=== PATIENT | female | born 1950 | race Caucasian/White ===

== ENCOUNTER 2017-07-22 09:32 | Outpatient (CLI) | payer MEDICARE ==
--- NOTE | 2017-07-22 12:39 | ULT ---
CAROTID DUPLEX SONOGRAM: History: Vascular disease. Syncope. FINDINGS: Right: Prominent plaque is present throughout the right carotid system. Color and spectral doppler e valuation, peak systolic velocity lf 159 cm/sec and IC to CC ratio is 1.8 suggest stenosis within th e right cervical ICA to be in the range of 50-69%. Antegrade flow is present within the vertebral ar swati. Left: Mild plaque is present. Color and spectral doppler evaluation, peak systolic velocity of 142 c m/sec and IC to CC ratio of 1.3 suggests no hemodynamically significant stenosis within the extracra nial right ICA. Antegrade flow is present within the vertebral artery. IMPRESSION: Prominent plaque. Elevated velocity within the right cervical ICA suggestive of stenosis in the rang e of 50-69%. Please consider further evaluation with virtual or CT arteriography. POS: [facility]
--- NOTE | 2017-07-24 15:58 | EKG ---
Test Reason : Blood Pressure : / mmHG Vent. Rate : 095 BPM Atrial Rate : 095 BPM P-R Int : 166 ms QRS Dur : 122 ms QT Int : 384 ms P-R-T Axes : 068 -65 063 degrees QTc Int : 482 ms Normal sinus rhythm Left anterior fascicular block Abnormal ECG When compared with ECG of 29-MAR-2017 17:01, (Unconfirmed) No significant change was found Confirmed by DR. Nathan SANABRIA ([id number]) on 07/24/2017 3:58:27 PM Referred By: FOREIGN Confirmed By:DR. Nathan SANABRIA
== END 2017-07-22 09:33 | disposition home or self-care (01) ==
LOC: ULT 09:32
PROVIDERS: ATTEND Surgery
DX: R55 Syncope and collapse (principal)
CPT/HCPCS: 93005; 93010; 93880

== ENCOUNTER 2017-09-16 06:09 | Inpatient (IN) | payer MEDICARE ==
[2017-09-15 12:08] VITALS: BMI 20.3
[2017-09-16] MEDS ORDERED: Midazolam HCl 2 mg/2 ml Vial ONE ×2 (06:30→07:01)
[2017-09-16] MEDS ORDERED: Fentanyl 100 MCG/2 ML VIAL ONE ×5 (06:30→14:41)
[2017-09-16] MEDS ORDERED: CEFAZOLIN/Water 2 GM/20 ML SYRINGE ONE (07:01)
[2017-09-16 07:06] LABS: #Eosinphils 0.3 thou/uL (0.0-0.7); #Lymphocytes 2.7 thou/uL (1.20-3.40); #Monocytes 0.7 thou/uL (0.11-0.59); #Neutrophils 6.1 thou/uL (1.40-6.50); %Eosinophils 3.1 % (0.0-10.0); %Lymphocytes 27.5 % (21.0-51.0); %Monocytes 7.2 % (0.0-10.0); %Neutrophils 62.2 % (42.0-75.0); Hemoglobin 14.9 g/dL (12.0-16.0); Mean Corpuscular HGB CONC 34.1 g/dL (32.0-36.0); Mean Corpuscular Hemoglobin 33.2 pg (27.0-31.0); Mean Corpuscular Volume 97.4 fl (81.0-99.0); Mean Platelet Volume 5.8 fL (7.4-10.4); Platelet Count 372 thou/uL (130-400); RBC Distribution Width 11.5 % (11.5-14.5); Red Blood Cell (RBC) Count 4.48 mill/uL (4.20-5.40); White Blood Cell (WBC) Count 9.9 thou/uL (4.8-10.8)
[2017-09-16 07:18] LABS: Anion Gap 14 mmol/L (10-20); BUN (Urea Nitrogen) 7 mg/dL (9.8-20.1); Calc. Creatinine Clearance 64 mL/min (70-130); Calcium 10.6 mg/dL (7.8-10.44); Carbon Dioxide 27 mmol/L (23-31); Chloride 97 mmol/L (98-107); Estimated GFR-MDRD 71; Glucose 112 mg/dL (80-115); Potassium 3.9 mmol/L (3.5-5.1); Sodium 134 mmol/L (136-145)
[2017-09-16] MEDS ORDERED: cefOXitin 2 GM VIAL ONE ×3 (07:42→12:06)
[2017-09-16] MEDS ORDERED: cefOXitin 2 GM, Syringe 1 ML in Sterile Water 10 ML SLOW IVP SCH (07:45)
[2017-09-16] MEDS ORDERED: Bupivacaine/Epinephrine 0.25% 30 ML VIAL ONE (08:34)
--- NOTE | 2017-09-16 11:04 | OP ---
DATE OF SERVICE: 09/16/2017 PREOPERATIVE DIAGNOSES: Diverticular disease with abscess, status post diversion. POSTOPERATIVE DIAGNOSES: Diverticular disease with abscess, status post diversion. PROCEDURE: Cystoscopy, placement of bilateral open-ended external ureteral stents. SURGEON: Mary Ellen Angeles M.D. ANESTHESIA: General with endotracheal tube. FINDINGS: Adequate placement of 2 open-ended 5-Gabonese ureteral catheters secured to Briceño catheter. COMPLICATIONS: No complications. DRAINS: Drain remaining was a bilateral ureteral indwelling attached to Briceño catheter. ESTIMATED BLOOD LOSS: No blood loss. INDICATIONS: The patient is a 67-year-old female who was seen in the office for concerns for fistula and ultimately been diverted already with a colostomy was planning on having her bowel resected and reattached and I was requested to place ureteral catheters. The patient was brought into the room by Anesthesia, was laid in the supine position. After obtainin g general anesthetic her legs placed in lithotomy position. Perineum was prepped and draped in steri le fashion. Using a 22-Gabonese cystoscope and 30 degree lens was traversed. The left ureteral orific e was intubated with a Pollack catheter and pushed until there was slight resistance. Then, the scop e was broken apart and removed, keeping the ureteral catheter in place and then the scope was put oralia k in because a right stent was requested as well so this was done in similar fashion. The scope brok en apart again. Both ureteral catheters were then exiting the urethral meatus and a Briceño catheter w as placed and secured. The ureteral catheters were placed into the drainage component of the Briceño c atheter and secured. The patient tolerated the procedure well and then remained asleep for the durat ion of her intended procedure.
[2017-09-16] MEDS ORDERED: Rocuronium Bromide 50 MG/5 ML VIAL ONE (12:06)
[2017-09-16] MEDS ORDERED: Ondansetron HCl/PF 4 MG/2 ML Vial IVP PRN ×3 (13:38→15:53)
[2017-09-16] MEDS ORDERED: Promethazine HCl 25 MG/ML VIAL SLOW IVP PRN (13:38)
[2017-09-16] MEDS ORDERED: Promethazine HCl 25 MG/ML VIAL IM PRN ×3 (13:38→15:53)
[2017-09-16] MEDS ORDERED: Promethazine HCl 25 MG/ML VIAL ONE (13:52)
[2017-09-16] MEDS ORDERED: Fentanyl 5000 MCG/250 ML CADD IVPB PRN ×2 (14:04→14:14)
[2017-09-16] MEDS ORDERED: diphenhydrAMINE 50 MG/ML VIAL IVP PRN (14:04)
[2017-09-16] MEDS ORDERED: diphenhydrAMINE 50 MG/ML VIAL IM PRN (14:04)
[2017-09-16] MEDS ORDERED: Naloxone HCl 0.4 mg/ml Vial IV PRN (14:04)
[2017-09-16] MEDS ORDERED: diphenhydrAMINE 25 MG CAP PO PRN (14:04)
[2017-09-16] MEDS ORDERED: Ketorolac Tromethamine 30 MG/ML VIAL IVP PRN (14:04)
[2017-09-16] MEDS ORDERED: Communication Order-Pharmacy FS SCH (14:15)
[2017-09-16] MEDS ORDERED: fentaNYL Citrate/PF 2,000 MCG in Sodium Chloride 0.9% 60 ML IV PRN (14:45)
--- NOTE | 2017-09-16 15:33 | PDOC.OP ---
Operative Note - Operative Note Operative Note: PROCEDURE: Sigmoid colectomy and colostomy reversal DATE OF PROCEDURE: 09/16/2017 SURGEON: Demond Vuong M.D. PREOPERATIVE DIAGNOSES: Colovaginal fistula with diverting colostomy POSTOPERATIVE DIAGNOSIS: Colovaginal fistula with diverting colostomy HISTORY: Ms. Calvo is a 67-year-old woman who presented to the hospital with a colovaginal fistula and a large pelvic abscess. She underwent a laparoscopic diverting colostomy and was treated with antibiotics as her abscess drained through the colovaginal fistula and her acute diverticulitis resolved. She now returns for sigmoid colectomy and reversal of her colostomy. PROCEDURE IN DETAIL: After informed consent was obtained and appropriate preoperative bowel prep and antibiotics administered, the patient was taken to the operating room where she was placed in the supine position and general anesthesia was administered. She was then placed in lithotomy position and prepped and draped in standard sterile fashion and cystoscopy and ureteral stent placement carried out by Dr. Angeles which is dictated under separate report. Her colostomy site was then sutured shut and she was prepped and draped again in lithotomy position including a rectal prep. A 6cm circa-umbilical incision was made and dissection carried down to the fascia which was incised in the midline. There were no significant adhesions to the anterior abdominal wall. A GelPort was placed and carbon dioxide gas insufflated through a port placed through the GelPort. Additional dissecting ports were placed in the upper midline and right lower quadrant under direct vision of the laparoscope. The abdominal cavity was then carefully examined. The sigmoid colon was densely adherent to the anterior abdominal wall at the remainder of the bowel was free of adhesions. The small intestine was easily moved out of the pelvis and the sigmoid colon carefully dissected free of the anterior abdominal wall through the avascular plane. Once the colon itself was mobilized off of the anterior abdominal wall tissues behind this were relatively soft and normal. The ureteral stents could easily be felt in the retroperitoneum well away from the area of dissection. As dissection was carried down toward the pelvis a dense area of fibrosis was encountered which was felt to likely represent the colovaginal fistula. This was carefully dissected free circumferentially and then transected with the LigaSure. There was no remaining patent lumen within the fistula. Once the sigmoid colon was mobilized off the lateral sidewall the mesocolon was transected using the LigaSure, again confirming that this was well away from the area of the ureteral stents. Dissection was carried down to the superior rectum which was dissected free circumferentially. An Endo LUIS stapler was then placed across the upper rectum and fired, and the sigmoid colon was removed through the gel port and passed from the field. Attention was then turned to mobilization of the splenic flexure. The white line of Toldt was incised laterally and the descending colon mobilized medially. An additional dissecting port was placed in the right mid abdomen under direct laparoscopic vision to aid in this mobilization. The omentum was mobilized off of the splenic flexure to allow additional mobility. Attention was then turned to the colostomy takedown. An elliptical incision was made around the colostomy and dissection carried down to the colon and mesocolon which was dissected free of the subcutaneous tissues. The attachments to the fascia were transected and the colon completely mobilized circumferentially. The colon was then placed through the colostomy defect into the abdominal cavity and the posterior rectus sheath closed under direct vision with a running PDS suture with excellent technical result. Carbon dioxide gas was then reinsufflated and the descending colon easily reached down to the rectal stump. The descending colon was then externalized through the wound protector and towels placed around the colon to prevent contamination. The external portion of the colostomy was transected. Sizers were used to size the descending colon which easily dissected up to a 31 mm sizer. A 31 mm EEA stapler was obtained and the anvil placed into the descending colon. A whipstitch was placed around the end of the descending colon and secured around the stalk. The surface of the colon was cleared of fat and the colon placed back into the abdominal cavity. All contaminated instruments were passed from the field. The sizers were then passed up the rectal stump following which the EEA stapler was placed into the end of the rectal stump and the stalk advanced just anterior to the staple line. This was mated to the anvil and the correct orientation of the colon confirmed. The EEA stapler was then closed and fired and removed transanally. The proximal doughnut was intact and full thickness but the distal donut appeared . It was felt that this likely occurred as the stapler was being removed from the rectum as the staple line appeared intact on laparoscopic examination. The descending colon was clamped and the rectum insufflated under saline and no bubbling was seen from the staple line. This was repeated and again no bubbling was seen. Because of the appearance of the distal donut the decision was made to reinforce the posterior suture line. This was done with 2 3-0 Vicryl Lembert sutures taking full-thickness bites on either side of the staple line to reinforce the posterior closure. The abdomen was irrigated and hemostasis verified. There were a few filmy attachments laterally which appeared to be placing the colon under a slight amount of tension so these were divided using LigaSure following which the anastomosis was appropriately tension-free. The right lower quadrant trocar was removed and the fascial defect closed under direct laparoscopic vision with a GraNee needle with excellent technical result. The remaining dissecting trochars were then removed under direct laparoscopic vision and hemostasis verified. The GelPort was removed and the omentum drawn down over the intestine. Seprafilm was placed between the omentum and anterior abdominal wall and all clean instruments gloves and gowns were obtained. The fascia was closed with a running PDS suture and the subcutaneous tissues copiously irrigated. The colostomy site was likewise copiously irrigated and the anterior rectus sheath closed with a running PDS suture with excellent technical result. Additional local anesthesia was infused and the skin incisions closed with running 4-0 subcuticular Monocryl sutures. Dermabond dressings were placed at the laparoscopic and hand port incisions. The colostomy site was not completely closed but was closed at intervals and packed between sutures. A gauze and Tegaderm dressing was placed at this site. The patient was extubated and taken to the recovery room in good condition. Estimated blood loss was 150 mL's. Specimen is sigmoid colon. There were no complications.
[2017-09-16] MEDS ORDERED: cefOXitin Sodium 1 GM in Sodium Chloride 0.9% 100 ML IVPB SCH (15:53)
[2017-09-16] MEDS ORDERED: hydrALAZINE 20 MG/ML VIAL SLOW IVP PRN (15:53)
[2017-09-16] MEDS ORDERED: Ondansetron HCl/PF 4 MG/2 ML Vial ONE (16:26)
[2017-09-16] MEDS ORDERED: Ketorolac Tromethamine 30 MG/ML VIAL ONE (16:26)
[2017-09-16] MEDS ORDERED: Propofol 200 MG/20 ML VIAL ONE (16:26)
[2017-09-16] MEDS ORDERED: PHENYLEPHRINE-NS 100 MCG/ML 10 ML SYRINGE ONE (16:26)
[2017-09-16] MEDS ORDERED: Lidocaine 1% PF 5 ML VIAL ONE (16:26)
[2017-09-16] MEDS ORDERED: Dexamethasone 20 MG/5 ML VIAL ONE (16:26)
[2017-09-16] MEDS ORDERED: Glycopyrrolate 0.2 MG/ML 5 ML SYRINGE ONE (16:26)
[2017-09-16] MEDS: Acetaminophen 1,000 MG in Premix Bag 1 BAG IVPB SCH ×2 (17:56→23:46)
[2017-09-16] MEDS: Ketorolac Tromethamine 30 MG/ML VIAL IVP SCH ×2 (17:56→23:47)
[2017-09-16] MEDS: D5 1/2 NS w/20 mEq KCL 1,000 ML IV SCH (17:59)
[2017-09-16] MEDS: cefOXitin Sodium 1 GM, Syringe 0.5 ML in Sterile Water 10 ML SLOW IVP SCH (20:29)
[2017-09-16] MEDS: Famotidine/PF 20 mg/2ml Vial SLOW IVP SCH (20:29)
[2017-09-16] MEDS: Famotidine 20 MG TAB PO SCH (20:30)
[2017-09-17] MEDS: D5 1/2 NS w/20 mEq KCL 1,000 ML IV SCH ×3 (01:04→17:10)
[2017-09-17] MEDS: cefOXitin Sodium 1 GM, Syringe 0.5 ML in Sterile Water 10 ML SLOW IVP SCH (03:21)
[2017-09-17 05:24] LABS: #Lymphocytes 2.5 thou/uL (1.20-3.40); #Monocytes 0.8 thou/uL (0.11-0.59); #Neutrophils 5.9 thou/uL (1.40-6.50); %Eosinophils 0.4 % (0.0-10.0); %Lymphocytes 27.3 % (21.0-51.0); %Neutrophils 63.2 % (42.0-75.0); Hemoglobin 10.7 g/dL (12.0-16.0); Mean Corpuscular HGB CONC 33.2 g/dL (32.0-36.0); Mean Corpuscular Hemoglobin 32.9 pg (27.0-31.0); Mean Corpuscular Volume 99.1 fl (81.0-99.0); Mean Platelet Volume 5.7 fL (7.4-10.4); Platelet Count 280 thou/uL (130-400); RBC Distribution Width 11.5 % (11.5-14.5); Red Blood Cell (RBC) Count 3.25 mill/uL (4.20-5.40); White Blood Cell (WBC) Count 9.3 thou/uL (4.8-10.8)
[2017-09-17 05:28] LABS: Anion Gap 12 mmol/L (10-20); BUN (Urea Nitrogen) 8 mg/dL (9.8-20.1); Calc. Creatinine Clearance 61 mL/min (70-130); Calcium 8.9 mg/dL (7.8-10.44); Carbon Dioxide 24 mmol/L (23-31); Chloride 105 mmol/L (98-107); Estimated GFR-MDRD 67; Glucose 106 mg/dL (80-115); Potassium 4.5 mmol/L (3.5-5.1); Sodium 136 mmol/L (136-145)
[2017-09-17] MEDS: Acetaminophen 1,000 MG in Premix Bag 1 BAG IVPB SCH ×2 (05:54→12:28)
[2017-09-17] MEDS: Ketorolac Tromethamine 30 MG/ML VIAL IVP SCH ×4 (05:54→23:33)
[2017-09-17] MEDS: Famotidine 20 MG TAB PO SCH ×2 (08:29→21:01)
[2017-09-17] MEDS: Famotidine/PF 20 mg/2ml Vial SLOW IVP SCH ×2 (08:29→20:59)
[2017-09-17] MEDS ORDERED: chlordiazePOXIDE HCl 5 MG CAP PO SCH (09:00)
[2017-09-17] MEDS: Enoxaparin Sodium 40 MG/0.4 ML SYRINGE SC SCH (09:54)
--- NOTE | 2017-09-17 11:44 | PRG ---
DATE OF SERVICE: 09/17/2017 SUBJECTIVE: The patient did very well overnight, has minimal pain, got up and ambulated previously. OBJECTIVE: VITAL SIGNS: She has remained afebrile with T-max of 98.8, heart rate varied from 109 down to 90, sa tting 96-97% on room air with her blood pressure being normal and stable. Her output from the Briceño was approximately 525 overnight and it is light pink in the tubing. ABDOMEN: Softly distended with incisions dressed. Briceño catheter is in place and one of the two ure teral stents previously placed was still remaining, so I gently removed this, but kept the indwelling . LABORATORY DATA: Revealed an anticipated anemia and a creatinine of 0.85. ASSESSMENT: A 67-year-old female status post prior diverting colostomy for diverticular disease and colovaginal fistula, now status post excision and reanastomosis, who had bilateral ureteral stents fo r aide in the procedure, both of which are now out now. I will let Dr. Vuong determine when her Fol ey catheter can be removed based on how much dissection she felt the bladder had. If there were no c oncerns regarding that, then it can come out sooner than later and Ms. Calvo can follow up with me as an outpatient. Please let me know if there is anything further from a urologic standpoint that i s of concern over in question during this hospital stay. Thank you for allowing me to take part.
[2017-09-17] MEDS: chlordiazePOXIDE HCl 5 MG CAP PO PRN (19:10)
[2017-09-17] MEDS: buPROPion 75 MG TAB PO SCH (20:59)
[2017-09-18] MEDS: D5 1/2 NS w/20 mEq KCL 1,000 ML IV SCH ×3 (00:43→20:10)
[2017-09-18 04:58] LABS: #Basophils 0.1 thou/uL (0.0-0.2); #Eosinphils 0.2 thou/uL (0.0-0.7); #Lymphocytes 2.1 thou/uL (1.20-3.40); #Monocytes 0.7 thou/uL (0.11-0.59); #Neutrophils 5.6 thou/uL (1.40-6.50); %Basophils 0.7 % (0.0-1.0); %Eosinophils 1.8 % (0.0-10.0); %Lymphocytes 24.5 % (21.0-51.0); %Neutrophils 65.1 % (42.0-75.0); Hemoglobin 9.7 g/dL (12.0-16.0); Mean Corpuscular HGB CONC 33.1 g/dL (32.0-36.0); Mean Corpuscular Volume 99.7 fl (81.0-99.0); Mean Platelet Volume 5.9 fL (7.4-10.4); Platelet Count 265 thou/uL (130-400); RBC Distribution Width 11.2 % (11.5-14.5); Red Blood Cell (RBC) Count 2.93 mill/uL (4.20-5.40); White Blood Cell (WBC) Count 8.5 thou/uL (4.8-10.8)
[2017-09-18 05:11] LABS: Anion Gap 9 mmol/L (10-20); BUN (Urea Nitrogen) 5 mg/dL (9.8-20.1); Calc. Creatinine Clearance 71 mL/min (70-130); Carbon Dioxide 26 mmol/L (23-31); Chloride 107 mmol/L (98-107); Estimated GFR-MDRD 80; Glucose 104 mg/dL (80-115); Potassium 4.8 mmol/L (3.5-5.1); Sodium 137 mmol/L (136-145)
[2017-09-18] MEDS: Ketorolac Tromethamine 30 MG/ML VIAL IVP SCH ×4 (06:12→23:35)
[2017-09-18] MEDS: Famotidine 20 MG TAB PO SCH ×2 (09:27→20:10)
[2017-09-18] MEDS: Lisinopril 10 MG TAB PO SCH (09:27)
[2017-09-18] MEDS: chlordiazePOXIDE HCl 5 MG CAP PO PRN (09:27)
[2017-09-18] MEDS: buPROPion 75 MG TAB PO SCH ×2 (09:27→20:10)
[2017-09-18] MEDS: Famotidine/PF 20 mg/2ml Vial SLOW IVP SCH ×2 (09:28→20:10)
[2017-09-18] MEDS ORDERED: Fluconazole 100 MG TAB PO SCH (11:00)
[2017-09-18] MEDS: Enoxaparin Sodium 40 MG/0.4 ML SYRINGE SC SCH (12:22)
[2017-09-18] MEDS: Zolpidem Tartrate 5 MG TAB PO PRN (23:38)
[2017-09-19] MEDS: D5 1/2 NS w/20 mEq KCL 1,000 ML IV SCH ×3 (03:23→21:27)
[2017-09-19 05:47] LABS: #Eosinphils 0.3 thou/uL (0.0-0.7); #Lymphocytes 1.8 thou/uL (1.20-3.40); #Monocytes 0.7 thou/uL (0.11-0.59); #Neutrophils 5.9 thou/uL (1.40-6.50); %Basophils 0.6 % (0.0-1.0); %Eosinophils 3.2 % (0.0-10.0); %Lymphocytes 20.4 % (21.0-51.0); %Monocytes 8.4 % (0.0-10.0); %Neutrophils 67.4 % (42.0-75.0); Mean Corpuscular HGB CONC 33.8 g/dL (32.0-36.0); Mean Corpuscular Hemoglobin 33.1 pg (27.0-31.0); Platelet Count 261 thou/uL (130-400); RBC Distribution Width 11.2 % (11.5-14.5); White Blood Cell (WBC) Count 8.7 thou/uL (4.8-10.8)
[2017-09-19] MEDS: Ketorolac Tromethamine 30 MG/ML VIAL IVP SCH ×3 (06:16→18:36)
[2017-09-19] MEDS: Lisinopril 10 MG TAB PO SCH (10:51)
[2017-09-19] MEDS: Famotidine 20 MG TAB PO SCH ×2 (10:51→20:48)
[2017-09-19] MEDS: buPROPion 75 MG TAB PO SCH ×2 (10:51→20:48)
[2017-09-19] MEDS: Famotidine/PF 20 mg/2ml Vial SLOW IVP SCH ×2 (10:52→20:49)
[2017-09-19] MEDS: chlordiazePOXIDE HCl 5 MG CAP PO PRN (11:40)
[2017-09-19] MEDS: Enoxaparin Sodium 40 MG/0.4 ML SYRINGE SC SCH (12:01)
[2017-09-20] MEDS: Zolpidem Tartrate 5 MG TAB PO PRN (00:37)
[2017-09-20] MEDS: D5 1/2 NS w/20 mEq KCL 1,000 ML IV SCH ×2 (05:51→13:39)
[2017-09-20] MEDS: buPROPion 75 MG TAB PO SCH ×2 (09:08→19:55)
[2017-09-20] MEDS: Famotidine 20 MG TAB PO SCH ×2 (09:09→19:55)
[2017-09-20] MEDS: Lisinopril 10 MG TAB PO SCH (09:09)
[2017-09-20] MEDS: Famotidine/PF 20 mg/2ml Vial SLOW IVP SCH ×2 (09:11→19:56)
[2017-09-20] MEDS ORDERED: DC PCA Order Set 1 EACH FS ONE (09:29)
[2017-09-20] MEDS ORDERED: Zinc Oxide 20% Oint 30 GM TUBE TOP PRN (09:30)
[2017-09-20] MEDS: Enoxaparin Sodium 40 MG/0.4 ML SYRINGE SC SCH ×2 (10:48→10:50)
[2017-09-20] MEDS: Morphine 4 MG/ML VIAL SLOW IVP PRN ×2 (14:06→19:56)
[2017-09-21] MEDS: Morphine 4 MG/ML VIAL SLOW IVP PRN (00:31)
[2017-09-21] MEDS ORDERED: HYDROcodone/Acetaminophen 7.5/325 mg Tablet PO PRN (01:47)
[2017-09-21] MEDS: HYDROcodone/Acetaminophen 7.5/325 mg Tablet PO PRN ×2 (03:33→14:09)
[2017-09-21] MEDS: Famotidine 20 MG TAB PO SCH (09:13)
[2017-09-21] MEDS: buPROPion 75 MG TAB PO SCH (09:13)
[2017-09-21] MEDS: Famotidine/PF 20 mg/2ml Vial SLOW IVP SCH (09:14)
[2017-09-21] MEDS: Lisinopril 10 MG TAB PO SCH (09:14)
[2017-09-21] MEDS: Enoxaparin Sodium 40 MG/0.4 ML SYRINGE SC SCH (09:26)
[2017-09-21 12:05] VITALS: BP 166/89; TEMP 99
[2017-09-26] MEDS ORDERED: HYDROcodone/Acetaminophen 7.5/325 mg Tablet PO PRN ×2 (13:27→16:03)
== END 2017-09-21 14:14 | disposition home or self-care (01) | DRG 330 ==
LOC: SURG A 06:09 → SURG B 15:32
PROVIDERS: ADMIT Surgery; ATTEND Surgery
PROC: 0DBN0ZZ Excision of Sigmoid Colon, Open Approach (ICD-10-PCS; principal; 2017-09-16)
PROC: 3E0T3BZ Introduction of Anesthetic Agent into Peripheral Nerves and Plexi, Percutaneous Approach (ICD-10-PCS; 2017-09-16)
PROC: 0T788DZ Dilation of Bilateral Ureters with Intraluminal Device, Via Natural or Artificial Opening Endoscopic (ICD-10-PCS; 2017-09-16)
DX: N82.3 Fistula of vagina to large intestine (principal); K57.80 Diverticulitis of intestine, part unspecified, with perforation and abscess without bleeding; D64.9 Anemia, unspecified; Z93.2 Ileostomy status; F17.210 Nicotine dependence, cigarettes, uncomplicated
CPT/HCPCS: 36415; 36416; 80048; 83036; 85025; 88307; A4216; C1758; J0131; J0360; J0694; J1100; J1650; J1885; J2001; J2250; J2270; J2405; J2550; J2704; J3010; J7050; S0028

== ENCOUNTER 2019-01-20 14:03 | Outpatient (CLI) | payer MEDICARE ==
--- NOTE | 2019-01-20 14:43 | MMO ---
Bilateral MAMMO Bilat Screen [facility]. CLINICAL HISTORY: Patient is 68 years old and is seen for screening. The patient has no family history of breast cancer. The patient has no personal history of cancer. The patient has a history of right Excisional Biopsy in 1971 - benign - X3. VIEWS: The views performed were: bilateral craniocaudal with tomosynthesis; bilateral mediolateral oblique with tomosynthesis; and bilateral exaggerated craniocaudal. MAMMOGRAM FINDINGS: The breasts are heterogeneously dense, which could obscure a lesion on mammography. There is a focal asymmetry seen in the upper-outer region of the right breast. No prior films were available for comparison. In the left breast, there are no suspicious masses, calcifications or areas of architectural distortion. IMPRESSION: FOCAL ASYMMETRY IN THE RIGHT BREAST REQUIRES ADDITIONAL EVALUATION. AN ULTRASOUND EXAM IS RECOMMENDED IF NEEDED. RECOMMEND DIAGNOSTIC MAMMOGRAM. THE RESULTS OF THIS EXAM WERE SENT TO THE PATIENT. ACR BI-RADS Category 0 - Incomplete: Need additional imaging evaluation. [facility] will notify the patient of the need for additional imaging services. MAMMOGRAPHY NOTE: 1. A negative mammogram report should not delay a biopsy if a dominant of clinically suspicious mass is present. 2. Approximately 10% to 15% of breast cancers are not detected by mammography. 3. Adenosis and dense breasts may obscure an underlying neoplasm.
== END 2019-01-20 14:04 | disposition home or self-care (01) ==
LOC: BICMAMMO 14:03
PROVIDERS: ATTEND Obstetrics & Gynecology
DX: Z12.31 Encounter for screening mammogram for malignant neoplasm of breast (principal); N64.89 Other specified disorders of breast
CPT/HCPCS: 77063; 77067

== ENCOUNTER 2019-01-26 12:50 | Outpatient (CLI) | payer MEDICARE ==
--- NOTE | 2019-01-26 13:35 | MMO ---
Right Breast MAMMO Unilat Diag [facility]. CLINICAL HISTORY: Patient is 68 years old and is seen for additional evaluation requested at current screening. The patient has no family history of breast cancer. The patient has no personal history of cancer. The patient has a history of right Excisional Biopsy in 1971 - benign - X3. VIEWS: The views performed were: right craniocaudal spot compression with tomosynthesis; right mediolateral oblique spot compression with tomosynthesis; and right mediolateral with tomosynthesis. FILMS COMPARED: The present examination has been compared to prior imaging studies performed at [facility] on 01/20/2019 and 01/26/2019. MAMMOGRAM FINDINGS: The breast is heterogeneously dense, which could obscure a lesion on mammography. Areas of asymmetric tissue on CC and ML/MLO views do not correlate to the same area of the breast on further imaging. Sonography of the upper outer quadrant reveals no concerning findings. There are no suspicious masses, suspicious calcifications, or new areas of architectural distortion. IMPRESSION: THERE IS NO MAMMOGRAPHIC EVIDENCE OF MALIGNANCY. A ROUTINE FOLLOW-UP MAMMOGRAM IN 1 YEAR IS RECOMMENDED. THE RESULTS OF THIS EXAM WERE SENT TO THE PATIENT. ACR BI-RADS Category 2 - Benign finding MAMMOGRAPHY NOTE: 1. A negative mammogram report should not delay a biopsy if a dominant of clinically suspicious mass is present. 2. Approximately 10% to 15% of breast cancers are not detected by mammography. 3. Adenosis and dense breasts may obscure an underlying neoplasm.
--- NOTE | 2019-01-26 13:40 | ULT ---
LIMITD RIGHT BREAST ULTRASOUND: DATE: 01/26/2019. PROVIDED CLINICAL HISTORY: Abnormal mammogram. FINDINGS: Limited sonographic interrogation was performed of the right breast from the 12 to 9 o'clock position s, including the presence of interpreting radiologist. No focal sonographic abnormality is evident. Focal areas of relatively dense tissue/scar are noted in the region of the patient's postsurgical ch lalo. The static sonographic images demonstrate a hypoechoic area with calipers, though this did not prove to be a true mass at real-time imaging. No concerning sonographic abnormalities are evident. IMPRESSION: BIRADS category 2 - benign findings. Return to annual screening mammography recommended. POS: OFF
== END 2019-01-26 12:51 | disposition home or self-care (01) ==
LOC: BICMAMMO 12:50
PROVIDERS: ATTEND Obstetrics & Gynecology
DX: R92.2 Inconclusive mammogram (principal)
CPT/HCPCS: 76642; 77065; G0279

== ENCOUNTER 2021-05-30 14:09 | Outpatient (CLI) | payer MEDICARE | END 2021-05-30 14:10 | disposition home or self-care (01) | LOC: BICMAMMO 14:09 | PROVIDERS: ATTEND Registered Nurse | DX: Z12.31 Encounter for screening mammogram for malignant neoplasm of breast (principal); Z13.820 Encounter for screening for osteoporosis; Z12.2 Encounter for screening for malignant neoplasm of respiratory organs; F17.210 Nicotine dependence, cigarettes, uncomplicated; M85.851 Other specified disorders of bone density and structure, right thigh; M85.852 Other specified disorders of bone density and structure, left thigh; Z91.89 Other specified personal risk factors, not elsewhere classified; Z78.0 Asymptomatic menopausal state | CPT/HCPCS: 71271; 77063; 77067; 77080 ==

== ENCOUNTER 2022-12-08 13:31 | Outpatient (CLI) | payer MEDICARE | END 2022-12-08 13:32 | disposition home or self-care (01) | LOC: BICCT 13:31 | PROVIDERS: ATTEND Registered Nurse | DX: Z12.2 Encounter for screening for malignant neoplasm of respiratory organs (principal); F17.210 Nicotine dependence, cigarettes, uncomplicated | CPT/HCPCS: 71271 ==